=== PATIENT | male | born 1995 | race African-American/Black ===

== ENCOUNTER 2017-03-08 11:58 | Emergency (ER) | payer MEDICAID ==
[~2017-03-08] VITALS: Ht 175.3 cm; Wt 59.0 kg
[2017-03-08] MEDS ORDERED: IBUPROFEN 400MG TABLET PO ONE (12:45)
[2017-03-08 13:30] VITALS: BP 126/78
== END 2017-03-08 14:48 | disposition home or self-care (01) ==
LOC: ER 14:22
DX: H61.21 Impacted cerumen, right ear (principal); F17.200 Nicotine dependence, unspecified, uncomplicated; Z98.890 Other specified postprocedural states
CPT/HCPCS: 69209; 99283

== ENCOUNTER 2017-03-26 16:39 | Emergency (ER) | payer MEDICAID ==
[~2017-03-26] VITALS: Ht 180.3 cm; Wt 55.0 kg
[2017-03-26] MEDS ORDERED: METHYLPREDNISOLONE SOD SUCC 125 MG/2 ML VIAL IV STA (19:19)
[2017-03-26] MEDS ORDERED: IPRATROPIUM/ALBUTEROL 0.5-3(2.5)MG/3ML NEB HHN ONE (19:30)
[2017-03-26 19:42] LABS: BASOPHILS % 0.7 % (0.0-2.0); EOSINOPHILS % 1.6 % (0.0-5.0); HEMATOCRIT. 46.7 % (42.0-52.0); HEMOGLOBIN. 15.5 g/dL (14.0-18.0); LYMPHOCYTES % 18.3 % (20.0-50.0); MEAN CORPUSCULAR HEMOGLOBIN 29.8 pg (28.0-32.0); MONOCYTES % 8.9 % (2.0-8.0); NEUTROPHILS % 70.5 % (40.0-76.0); PLATELET 193 x1000/uL (130-400); RED BLOOD CELL COUNT 5.19 mill/uL (4.7-6.1); RED CELL DISTRIBUTION WIDTH 14.3 % (11.6-14.6)
[2017-03-26 19:43] LABS: CHLORIDE 104 mEq/L (98-107)
[2017-03-26 19:44] LABS: INR 1.1; PROTHROMBIN TIME 10.9 sec (9.4-11.6)
[2017-03-26 19:47] LABS: CARBON DIOXIDE 26 mEq/L (21-32)
[2017-03-26 21:01] VITALS: BP 114/74
== END 2017-03-26 21:02 | disposition home or self-care (01) ==
LOC: ER 16:39
DX: J06.9 Acute upper respiratory infection, unspecified (principal)
CPT/HCPCS: 36415; 71010; 80053; 85025; 85610; 93005; 94640; 96374; 99285; J2930; J7620

== ENCOUNTER 2018-02-27 14:36 | Emergency (ER) | payer MEDICAID ==
[~2018-02-27] VITALS: Ht 172.7 cm; Wt 700.0 kg
[2018-02-27 14:39] VITALS: BP 139/91
== END 2018-02-27 17:53 | disposition left against medical advice (07) ==
LOC: ER 14:49
DX: F41.9 Anxiety disorder, unspecified (principal); Z53.21 Procedure and treatment not carried out due to patient leaving prior to being seen by health care provider

== ENCOUNTER 2018-11-26 21:43 | Emergency (ER) | payer MEDICAID ==
[~2018-11-26] VITALS: Ht 175.3 cm; Wt 62.6 kg
[2018-11-26] MEDS ORDERED: KETOROLAC 60MG/2ML VIAL IM ONE (22:45)
[2018-11-27] VITALS: BP 125/65
== END 2018-11-27 | disposition home or self-care (01) ==
LOC: ER 21:43
DX: S62.392A Other fracture of third metacarpal bone, right hand, initial encounter for closed fracture (principal); F12.10 Cannabis abuse, uncomplicated; W22.01XA Walked into wall, initial encounter; Y93.89 Activity, other specified; Y92.89 Other specified places as the place of occurrence of the external cause; Y99.8 Other external cause status; Z98.890 Other specified postprocedural states
CPT/HCPCS: 29125; 73130; 96372; 99283; J1885

== ENCOUNTER 2018-12-02 16:18 | Emergency (ER) | payer MEDICAID ==
[~2018-12-02] VITALS: Ht 170.2 cm; Wt 63.0 kg
[2018-12-02 17:29] VITALS: BP 112/78
== END 2018-12-02 18:41 | disposition home or self-care (01) ==
LOC: ER 16:18
DX: S62.302A Unspecified fracture of third metacarpal bone, right hand, initial encounter for closed fracture (principal); F41.1 Generalized anxiety disorder; J45.909 Unspecified asthma, uncomplicated; X58.XXXA Exposure to other specified factors, initial encounter; Y93.89 Activity, other specified; Y92.89 Other specified places as the place of occurrence of the external cause; Y99.8 Other external cause status
CPT/HCPCS: 93005; 99283